=== PATIENT | female | born 1940 | race American Indian/Alaskan Native ===

== ENCOUNTER 2017-03-17 06:37 | Day surgery (SDC) | payer MEDICARE ==
[2017-03-10 10:08] VITALS: BMI 28.5
[2017-03-17] MEDS ORDERED: Lactated Ringer's 1,000 ML IV ONE (10:20)
[2017-03-17] MEDS ORDERED: ceFAZolin IV 1 gm in Dextrose 1 GM/50 ML BAG IVPB ONE (10:26)
[2017-03-17] MEDS ORDERED: Bupivacaine HCl 0.5% PF (10 ml) Inj ONE ×2 (10:27→11:45)
[2017-03-17] MEDS ORDERED: Lidocaine Hydrochloride 5 ML INJ ONE (10:30)
[2017-03-17] MEDS ORDERED: Succinylcholine Chloride 20 mg/ml Syr (5 ml) IV ONE (10:30)
[2017-03-17] MEDS ORDERED: Rocuronium 10 mg/ml (5 ml) ONE (10:30)
[2017-03-17] MEDS ORDERED: Propofol 10 mg/ml Inj (20 ML) ONE (10:30)
[2017-03-17] MEDS ORDERED: Neostigmine Methylsulfate 3mg/3ml Syringe IV ONE (11:47)
[2017-03-17] MEDS ORDERED: Oxycodone/Acetaminophen 5/325 mg Tab PO PRN (12:14)
[2017-03-17] MEDS ORDERED: HYDROmorphone 0.5 mg/0.5 ml ISec IVP PRN (12:15)
--- NOTE | 2017-03-17 12:17 | PCM.SURG1 ---
Surgeon's Initial Post Op Note - Surgeon's Notes Surgeon: Dr. Yuen Manufacturing Coordinator: PGY4, Arturo PGY1, Óscar PATEL Type of Anesthesia: General Endo Anesthesia Administered By: Dr. Bautista Pre-Operative Diagnosis: Intraductal papilloma of left breast Operative Findings: see operative report Post-Operative Diagnosis: Intraductal papilloma of left breast Operation Performed: Left breast lumpectomy Specimen/Specimens Removed: breast tissue containing needle, clip and Intraductal papilloma of left breast Estimated Blood Loss: EBL {In ML}: 10 Blood Products Given: N/A Drains Used: No Drains Post-Op Condition: Good Date of Surgery/Procedure: 03/17/17 Time of Surgery/Procedure: 10:45
[2017-03-17 15:10] VITALS: BP 137/77; PULSE 67; RESP 18; TEMP 98; O2SAT 100
--- NOTE | 2017-03-17 17:31 | US ---
HISTORY: Follow-up surgery known intraductal papilloma. TECHNIQUE/FINDINGS: Timeout was called for ultrasound guided wire needle localization procedure for lesion: in the position: of the breast 1 o'clock 2 cm, from the nipple. The mass was identified with ultrasound at the 1 o'clock Radian:. Overlying skin was marked for procedure. In a sterile field, overlying skin was cleaned. 1.75 cc of lidocaine was utilized for skin anesthesia. 5 cm hookwire combination was inserted into the area of interest. Patient tolerated the procedure well with no complications. Postoperative specimen radiograph demonstrates confirms the presence of the hook wire, the micro clip and the small mass likely the papilloma.. OTHER FINDINGS: None. IMPRESSION: Successful ultrasound-directed needle localization with confirmation of areas of interest on the postprocedure mammogram. Final pathology results are pending.
--- NOTE | 2017-03-17 17:32 | MAM ---
PROCEDURE: Postprocedure mammogram of specimen HISTORY: POST US GUIDED NEEDLE LOC (LEFT) COMPARISON: 2017. TECHNIQUE: Standard protocol for this study/examination. FINDINGS: Specimen radiograph confirms the presence of the micro clip and the hook wire. IMPRESSION: Confirmation of areas of interest on specimen radiograph. Pathology results are pending.
--- NOTE | 2017-03-17 18:02 | OP ---
PROCEDURE DATE: 03/17/2017 PREOPERATIVE DIAGNOSIS: Left breast intraductal papilloma. POSTOPERATIVE DIAGNOSIS: Left breast intraductal papilloma. PROCEDURE DONE: Left breast lumpectomy with preop needle localization. SURGEON: Chucky Yuen MD. ASSISTANTS: Doug Christiansen, PGY-4 resident and Yandel Morris, PGY-1 resident. TYPE OF ANESTHESIA: General endotracheal tube anesthesia. ESTIMATED BLOOD LOSS: Around 10 mL. DRAIN: None. PATHOLOGY: The left breast lumpectomy specimen was sent for pathology. COMPLICATIONS: None. INTRAOPERATIVE FINDINGS: Patient had left upper mid breast lesion with biopsy clip on preop needle localization study. DESCRIPTION OF PROCEDURE: On intraoperative steps, this 77-year-old female, who was diagnosed with left breast intraductal papilloma and the patient was consented for excision of the left breast mass with preop needle localization. Patient was brought to the OR. After preop needle localization, the left breast was prepped and draped in a usual sterile fashion after induction of the anesthesia and the curvilinear incision was made in the upper breast and after incising skin and subcutaneous tissue, the breast tissue was entered and the dissection was carried down surrounding the needle localized wire and the dissection was carried down deep into the breast tissue and the suspicious mass was completely excised with clip as well as the wire and it was sent for the radiological confirmation. After proper radiologic confirmation, the wound was irrigated and wound was closed in multiple layer. The deeper part of the breast tissue with 2-0 Vicryl, the supervening part of the breast tissue with 2-0 Vicryl, subcutaneous with a 2-0 Vicryl, and skin with a 4-0 Monocryl and dry sterile dressing was applied. Patient tolerated the procedure well. Count of instrument and gauze was correct. There was no apparent complication. Patient was extubated in OR and sent to the Postanesthesia Care Unit in stable condition. Chucky Yuen MD
== END 2017-03-17 14:35 | disposition home or self-care (01) ==
LOC: C.SDS 06:37
PROVIDERS: ATTEND Surgery Surgical Critical Care
DX: D24.2 Benign neoplasm of left breast (principal)
CPT/HCPCS: 19285; 19301; 88307; J0690; J1100; J2405; J2704; J2710; J3010; J7120

== ENCOUNTER 2018-02-04 07:31 | Day surgery (SDC) | payer MEDICARE ==
[2017-03-10 10:08] VITALS: BMI 28.5
[2018-02-04] MEDS ORDERED: Lactated Ringer's 500 ML IV ONE (11:17)
[2018-02-04] MEDS ORDERED: Propofol 10 mg/ml Inj (20 ML) ONE (11:20)
[2018-02-04] MEDS ORDERED: Lactated Ringer's 500 ML IV SCH (11:30)
[2018-02-04 13:11] VITALS: BP 142/67; PULSE 77; RESP 22; TEMP 97.9; O2SAT 99
== END 2018-02-04 13:00 | disposition home or self-care (01) ==
LOC: C.ENDO 07:31
PROVIDERS: ATTEND Internal Medicine Gastroenterology
DX: Z12.11 Encounter for screening for malignant neoplasm of colon (principal); K64.8 Other hemorrhoids; K57.90 Diverticulosis of intestine, part unspecified, without perforation or abscess without bleeding
CPT/HCPCS: 45378; J2704; J3010; J7120